=== PATIENT | female | born 1955 | race Caucasian/White ===

== ENCOUNTER → 2017-10-18 | Outpatient (CLI) | payer OTHER ==
[~2017-10-18] MED LIST: ALEVE220 MG PO; AUGMENTIN 875875 MG PO; BENADRYL25 MG PO; IBUPROFEN 800800 M1 PO; LEVOTHYROXIN0.125 M1 PO; LEVOTHYROXIN0.125 M2 PO; MOM PO; PANTOPRAZOLE SO40 M1 PO; PREDNISONE 10 M10 MG PO; PREDNISONE 20 M20 M1 PO; PREDNISONE 20 M20 MG PO; PREDNISONE50 MG PO; ZANTAC150 M2 PO; ZYRTEC 10 MG TA10 MG PO; ZYRTEC-D TABLE1 EAC1 PO; ZYRTEC-D TABLE1 EACH PO; ZYRTEC10 M2 PO
== END ==
LOC: M.RAD 10:49
DX: J40 Bronchitis, not specified as acute or chronic (principal)